=== PATIENT | female | born 1955 | race Hispanic/Latino ===

== ENCOUNTER 2018-01-10 08:01 | Day surgery (SDC) | payer BC ==
[2018-01-08 10:37] VITALS: BMI 30.8
[2018-01-10 08:43] LABS: BASO # 0.04 K/mm3 (0.0-2.0); BASO % 0.7 % (0.0-3.0); EOS # 0.3 (0.0-0.7); EOS % 4.7 % (1.5-5.0); GRAN # 2.83 (1.4-6.5); GRAN % 51.5 % (50.0-68.0); HEMOGLOBIN 12.7 g/dL (12.0-16.0); LYMPH % 36.2 % (22.0-35.0); MEAN CELL VOLUME 89.2 fl (80.0-105.0); MEAN CORPUSCULAR HEMOGLOBIN 30.5 pg (25.0-35.0); MEAN CORPUSCULAR HGB CONC 34.1 g/dl (31.0-37.0); MEAN PLATELET VOLUME 8.4 fl (7.0-11.0); MONO # 0.4 (0.1-0.6); MONO % 6.9 % (1.0-6.0); RBC 4.17 10^6/uL (3.5-6.1); RED CELL DISTRIBUTION WIDTH 14.2 % (11.5-14.5); WHITE BLOOD COUNT 5.5 10^3/ul (4.5-11.0)
[2018-01-10 08:54] LABS: INR 0.98 (0.93-1.08); PARTIAL THROMBOPLASTIN TIME 27.3 Seconds (25.1-36.5); PROTHROMBIN TIME 11.3 SECONDS (9.4-12.5)
[2018-01-10 09:00] LABS: BLOOD UREA NITROGEN 16 mg/dL (7-21); CALCIUM 9.3 mg/dL (8.4-10.5); GFR AFRICAN-AMERICAN > 60; GFR NON-AFRICAN AMERICAN > 60
[2018-01-10] MEDS ORDERED: Lidocaine 2% Inj (20ml) ONE (12:03)
[2018-01-10] MEDS ORDERED: Iohexol 350mgl/ml 50 ML ONE (12:04)
[2018-01-10] MEDS ORDERED: Midazolam 2 MG/2 ML VIAL ONE ×2 (12:08→12:35)
[2018-01-10] MEDS ORDERED: Adenosine 90 mg/30mL IV ONE (12:35)
[2018-01-10] MEDS ORDERED: Iodixanol 320 MG/ML 100 ML BOTTLE IV ONE (12:51)
[2018-01-10] MEDS ORDERED: Sodium Chloride 0.9% 1,000 ML IV SCH (13:15)
--- NOTE | 2018-01-10 14:01 | CARDCATH ---
PROCEDURE DATE: 01/10/2018 CARDIAC CATHETERIZATION AND PTCA HISTORY: The patient is a the patient is a 62-year-old woman with history of documented multivessel CAD and status post PTCA and stent of the circumflex artery and RCA who presented with a code heart in the past. She presents now with recurrence of exertional angina and shortness of breath. Her cardiac risk factors include hypertension, hypercholesterolemia as well as a long history of smoking, which she has stopped since her last PTCA Because of her ongoing symptoms, cardiac catheterization was recommended. PROCEDURE: Left heart catheterization with coronary arteriography, left ventriculogram, FFR, PTCA and stent of an LAD with performed. There were no complications. The right femoral artery was cannulated with 6-Polish sheath. I performed moderate sedation, which included the presence of an independent trained observer that assisted in monitoring the patient's level of consciousness and physiologic status. After administration of Versed and fentanyl, my intra service time was 30 minutes. The findings on catheterization revealed a right dominant circulation. The RCA revealed calcification of the tree with a patent stent noted. The left main artery was unremarkable. The LAD and diagonal vessels revealed diffuse atherosclerosis and calcification; in the midportion, there were two tandem lesions of approximately 70-80% narrowed. The circumflex artery revealed diffuse atherosclerosis with a patent stent with no critical lesions. LV function was within normal limits. EF is approximately 60-65%. FFR was performed of the LAD lesions. Having FFR of 0.83, the patient developed chest discomfort. The medication was stopped. The patient was started on Angiomax. The guiding catheter was placed in the ostium of the left main artery. The wire that was placed to the FFR was used. A 2.5 x 18 mm drug-eluting stent was placed and deployed in the mid LAD lesion at 14 atmospheres of pressure. A second 8-mm stent was placed just proximal to the first stent. After balloon deflation and removal, repeat coronary arteriography revealed an excellent result with no residual stenosis and OSCAR III flow. Angio-Seal was used to close the femoral artery site. The patient tolerated the procedure well. In summary, the procedure revealed: 1. Multivessel CAD. 2. Patent stent in the RCA and circumflex artery. 3. New critical lesions in the mid-LAD documented with a FFR of less than 0.83. 4. Normal LV function. 5. Successful PTCA and stent of the mid LAD with drug-eluting stent. Given these findings, the patient will need to remain on aspirin indefinitely and Effient for at least a year and undergo a strict cardiac risk reduction program. Addi Cazares MD
--- NOTE | 2018-01-10 16:52 | CARD ---
APPROVED REPORT EKG Measurement Heart [id number] <Conclusion> Sinus bradycardia Otherwise normal ECG
--- NOTE | 2018-01-10 16:55 | CARD ---
APPROVED REPORT EKG Measurement Heart [id number] <Conclusion> Sinus bradycardia Otherwise normal ECG
--- NOTE | 2018-01-11 03:28 | HP ---
HISTORY OF PRESENT ILLNESS: I was called by Dr. Cazares to see Sherrie. She is resting comfortably in bed. I saw her in room 266 with a friend. Apparently, she knows my office. She has been in my office about 20 years ago. She is status post cardiac cath, two stents placement, she tells me. She comes in with a history of having chest pain on and off for about a week and they planned a stress test and a cardiac cath. She has had cardiac caths before with stent placement, so they took straight to the cath room. She is a 62-year-old white female with chest pain, taken to the cath, had two stents placed. She has a past medical history of thyroid disease, COPD, CAD, high cholesterol, hypertension. Family history of cancer. She has vertigo, anxiety. Her aunt had breast cancer. Colonoscopy, PTCA stents x3. She had gallbladder surgery. She still drinks alcohol. She quit smoking, but she used to smoke a lot. No recreational drugs. She has father with coronary artery disease. She has chest pain. She has reading glasses. She is alert and oriented x3.. ALLERGIES: SHE HAS ALLERGIES TO PENICILLIN. REVIEW OF SYSTEMS: No acute vision or hearing changes. No sore throat. There is chest pain, a little bit of pressure, no tightness, nothing in the arm. No shortness of breath or cough. No palpitations. No abdominal pain. No nausea, vomiting, constipation, diarrhea. No leg pains. No skin issues that she knows of. No rashes or ulcers. She has been trying to watch a good diet, but since she stopped smoking, she has eaten too much sugar to put weight on. PHYSICAL EXAMINATION: VITAL SIGNS: 97.6 temperature, 60 pulse, 18 respiratory rate, 100% O2 sat on oxygen and 146/62 blood pressure. HEENT: Her head is atraumatic, normocephalic. Extraocular muscles are intact. Throat is moist. NECK: Supple. HEART: Regular rate. Normal S1, S2. LUNGS: Decreased breath sounds, but clear to auscultation bilaterally. She is now lying flat, status post cardiac cath and stent placement. ABDOMEN: Soft, nontender. Positive bowel sounds. She is obese. EXTREMITIES: No edema. SKIN: What I could tell the skin is intact. No apparent rashes. LYMPHATICS: Thyroid midline. No palpable appreciable lymphadenopathy. She is told to lay flat for 6 hours, status post cardiac cath. She is getting a little bit restless, but she knows she has to stay flat. LABORATORY DATA: She has a 144 sodium, potassium 4.5, BUN 16, creatinine sugar is 103, calcium is 9.3. INR is 0.98. 5.5 white count, 12.7 hemoglobin, 37.2 hematocrit with 304 platelets. ASSESSMENT AND PLAN: She saw Dr. Cazares. I will be in tomorrow morning. She is here for coronary artery disease and stent placement. She is on Ecotrin, Effient, Lipitor, IV fluids and Xanax. I will reorder her Xanax and will see her tomorrow morning as we see her for coronary artery disease, stent placement. Jossue Johnson DO MTDDasha
[2018-01-11 06:17] VITALS: BP 112/61; RESP 19; TEMP 98.4; O2SAT 95
[2018-01-11 07:01] LABS: BASO # 0.02 K/mm3 (0.0-2.0); BASO % 0.3 % (0.0-3.0); EOS # 0.4 (0.0-0.7); EOS % 4.8 % (1.5-5.0); GRAN # 4.63 (1.4-6.5); GRAN % 61.7 % (50.0-68.0); HEMOGLOBIN 12.1 g/dL (12.0-16.0); LYMPH # 2.2 (1.2-3.4); LYMPH % 28.7 % (22.0-35.0); MEAN CELL VOLUME 91.1 fl (80.0-105.0); MEAN CORPUSCULAR HGB CONC 32.9 g/dl (31.0-37.0); MEAN PLATELET VOLUME 8.5 fl (7.0-11.0); MONO # 0.3 (0.1-0.6); MONO % 4.5 % (1.0-6.0); RBC 4.04 10^6/uL (3.5-6.1); RED CELL DISTRIBUTION WIDTH 14.6 % (11.5-14.5); WHITE BLOOD COUNT 7.5 10^3/ul (4.5-11.0)
[2018-01-11 07:11] LABS: BLOOD UREA NITROGEN 17 mg/dL (7-21); CALCIUM 8.7 mg/dL (8.4-10.5); GFR AFRICAN-AMERICAN > 60; GFR NON-AFRICAN AMERICAN > 60
[2018-01-11 10:25] VITALS: PULSE 76
--- NOTE | 2018-01-11 13:39 | PN ---
DATE: 01/11/2018 SUBJECTIVE: The patient is chest pain free. PHYSICAL EXAMINATION: VITAL SIGNS: Blood pressure 112/66, heart rate in the 70s. NECK: Negative JVD. LUNGS: Without rales. HEART: Reveals S1, S2. EXTREMITIES: Without edema. The groin site is stable. LABORATORY DATA: Potassium is 4, hemoglobin is 12.1. IMPRESSION: 1. Stable post percutaneous transluminal coronary angioplasty and stent of an left anterior descending. 2. Multivessel coronary artery disease. 3. Hypercholesterolemia. 4. Former smoker. 5. Chronic obstructive pulmonary disease. Given these findings, the patient is stable for discharge. She needs to remain on Effient and aspirin with Effient for at least a year. Followup and instructions have been given to the patient in detail. Addi Cazares MD
--- NOTE | 2018-01-12 04:20 | DS ---
HISTORY OF PRESENT ILLNESS: The patient did well last night. She is status post cardiac stent placement for CAD yesterday with Dr. Cazares, two stents. She slept well, did well, walked to the bathroom well. No chest pain or shortness of breath. No abdominal pain. No leg pain. She is currently on Claritin, Ecotrin, Effient, Lipitor, Xanax. PHYSICAL EXAMINATION: VITAL SIGNS: She has a 98.4 temperature,77 pulse , 112/61 blood pressure, 19 respiratory rate, 95% O2 sat on room air. HEENT: Head is atraumatic, normocephalic. HEART: Regular rate. LUNGS: Clear to auscultation. ABDOMEN: Soft, mildly obese, nontender. EXTREMITIES: No edema. LABORATORY DATA: Her labs yesterday were very good. Her labs pending this morning, are not back yet, hopefully the same. She will be seen by Dr. Cazares this morning and will be sent home. I went over her diet with her. I went over the low sugar, low cholesterol diet, only good fats and good proteins and walking. No smoking. No drinking, behaving. She understood all these; hopefully, she will continue to do well. This is a patient who had CAD and stents placed. Jossue Johnson DO MTDD
== END 2018-01-11 12:33 | disposition home or self-care (01) ==
LOC: CATH 08:01 → 2RNO 14:04 → CATH 01-11 12:33
PROVIDERS: ATTEND Internal Medicine Cardiovascular Disease
DX: I25.118 Atherosclerotic heart disease of native coronary artery with other forms of angina pectoris (principal); E07.9 Disorder of thyroid, unspecified; E78.00 Pure hypercholesterolemia, unspecified; F41.9 Anxiety disorder, unspecified; I10 Essential (primary) hypertension; J44.9 Chronic obstructive pulmonary disease, unspecified; Z80.3 Family history of malignant neoplasm of breast; Z82.49 Family history of ischemic heart disease and other diseases of the circulatory system; Z87.891 Personal history of nicotine dependence; Z88.0 Allergy status to penicillin; Z95.5 Presence of coronary angioplasty implant and graft
CPT/HCPCS: 36415 ×2; 80048 ×2; 85025 ×2; 85610; 85730; 86850; 86900; 93005; 93458; 93571; 99152; 99153; C1760; C1769; C1874 ×2; C1887; C2629; C9600; J0153; J0583; J1644; J2250; J3010; J7030; J7040; Q9967 ×3

== ENCOUNTER 2018-01-13 14:16 | Observation (INO) | payer BC ==
[2018-01-13] MEDS ORDERED: Nitroglycerin 2% Ointment Foilpak UD TOP STA (14:52)
--- NOTE | 2018-01-13 14:54 | ED PDOC ---
Arrival/HPI - General Chief Complaint: Chest Pain Time Seen by Provider: 01/13/18 14:49 Historian: Patient - History of Present Illness Narrative History of Present Illness (Text): 01/13/18 14:53 pt p/w + worsening chest pain/pressure/discomfort substernal chest region with faint radiation across her chest this morning while patient was picking something (lightweight, < 1 lbs) up from the floor; pt states pain at most is 7/ 10; + lightheadedness/dizziness, no LOC; pt states no fever/chills/sweats, no palpitations, no abd pain, no n/v, no numbness/tingling; pt denied any bowel/ urinary changes, no fall/trauma/sick contact, no travel; pt is here for further eval. pt denied other complaints pt states she went home and took her xanax thinking her pain would improve but it did not, pt arrived to Emergency department for further eval. pt just received 2 cardiac stents [address] LUDWIG and was discharged from the hospital ~ 2 days ago; pt states she had very faint chest discomfort prior to discharge/and after discharge, but today's chest pain is different and more noticeable prompting patient for Emergency department visit PCP: Dr sky cards: Dr Ludwig Time/Duration: Prior to Arrival Symptom Onset: Sudden Symptom Course: Improving Quality: Pressure, Tightness, Cramping Severity Level: 7, Severe Activities at Onset: Other (lifting an object) Context: Other (at a store) Past Medical History - Provider Review Nursing Documentation Reviewed: Yes - Travel History Have you recently traveled outside [place] w/in the past 3 mons?: No - Past History Past History: No Previous - Infectious Disease Hx of Infectious Diseases: None - Reproductive Menopause: Yes Currently : No - Cardiac Hx Pacemaker: No - Pulmonary Hx Respiratory Disorders: No - Neurological Hx Paralysis: No - HEENT Hx HEENT Disorder: No - Renal Hx Renal Disorder: No - Endocrine/Metabolic Hx Hypothyroidism: Yes - Hematological/Oncological Hx Blood Transfusions: No - Integumentary Hx Dermatological Disorder: No - Musculoskeletal/Rheumatological Hx Musculoskeletal Disorders: No - Gastrointestinal Hx Gastrointestinal Disorders: No - Genitourinary/Gynecological Hx Genitourinary Disorders: No - Psychiatric Hx Emotional Abuse: No Hx Physical Abuse: No Hx Substance Use: No - Surgical History Other/Comment: stents Darleen X1 - Anesthesia Hx Anesthesia Reactions: No Hx Malignant Hyperthermia: No - Suicidal Assessment Feels Threatened In Home Enviroment: No Family/Social History - Physician Review Nursing Documentation Reviewed: Yes Family/Social History: No Known Family HX Smoking Status: Former Smoker Hx Alcohol Use: Yes (OCCASIONAL) Hx Substance Use: No Hx Substance Use Treatment: No Allergies/Home Meds Allergies/Adverse Reactions: Allergies Penicillins Allergy (Verified 08/15/16 06:04) ANGIOEDEMA Home Medications: Home Meds Medication Instructions Recorded Confirmed Aspirin [Ecotrin] 81 mg PO DAILY 08/16/16 01/13/18 Levothyroxine [Synthroid] 75 mcg PO DAILY 08/16/16 01/13/18 Prasugrel [Effient] 10 mg PO DAILY 08/16/16 01/13/18 ALPRAZolam [Xanax] 0.25 mg PO TID 05/03/17 01/13/18 Fluticasone/Vilanterol [Breo 1 each IH DAILY 05/03/17 01/13/18 Ellipta 100-25 Mcg INH] Losartan [Cozaar] 12.5 mg PO DAILY 05/03/17 01/13/18 Levocetirizine Dihydrochloride 5 mg PO DAILY 01/10/18 01/13/18 [Xyzal] Pitavastatin Calcium [Livalo] 1 mg PO DAILY 01/10/18 01/13/18 Review of Systems - Review of Systems Constitutional: Normal Eyes: Normal ENT: Normal Respiratory: Normal. absent: SOB Cardiovascular: Chest Pain. absent: Palpitations Gastrointestinal: Normal. absent: Abdominal Pain, Nausea, Vomiting Genitourinary Female: Normal Musculoskeletal: Normal Skin: Normal. absent: Rash Neurological: Dizziness. absent: Headache Endocrine: Normal Hemo/Lymphatic: Normal Psychiatric: Normal Physical Exam - Physical Exam Narrative Physical Exam (Text): 01/13/18 1450 General: alert/awake, GCS = 15, oriented x 3, resting in bed, uncomfortable, cooperative, interactive; NAD Head: NC/AT EYE: PERRLA, EOMI, sclera anicteric, no nystagmus, no photophobia Facial: WNL Oral: uvula/tongue are midline, no exudate/lesions, no drooling/stridor, no dysphonia; intact dentitions NECK: intact ROM, no midline tenderness, no nuchal rigidity, no meningeal signs ; no step off Chest: CTA b/l, no w/r/r; no tachypenia, no accessory muscle use noted Cardiac: +S1, +S2, no m/r/r, no tachycardia Abdominal: +BS, soft/nd/nt, well nourished patient; no masses/rebound/guarding/ rigidity; no duffy's sign, no mcburney's point tenderness Extremities: intact ROM, strength 5/5 grossly intact in all limbs, neurovasc intact b/l; + ambulatory; reflex +2/2 BACK: no step off, no midline tenderness, NO crepitus, no gross deformities noted; Intact ROM SKIN: cap refill < 1 sec, no ulcerations, no petechiae, no rashes NEURO: CNII-XII WNL, no facial asymmetries, no slurr speech, oriented x 3 NIH stroke scale ~ 0 Psych: normal insight, normal affect; follows command with ease Vital Signs Reviewed: Yes Vital Signs Temp Pulse Resp BP Pulse Ox 01/13/18 16:07 63 18 113/71 99 01/13/18 15:43 98.0 F 66 18 139/66 98 Temperature: Afebrile Blood Pressure: Hypertensive Pulse: Regular Respiratory Rate: Normal Appearance: Positive for: Well-Appearing, Non-Toxic, Uncomfortable, Other (alert /awake, GCS = 15, oriented x 3, resting in bed, uncomfortable, cooperative, NAD) Pain Distress: None Mental Status: Positive for: Alert and Oriented X 3 - Systems Exam Head: Present: Atraumatic, Normocephalic Medical Decision Making ED Course and Treatment: 1450 Impression: chest pain, r/o acs i have consider all the differential diagnosis regarding pt's chief medical complaints/clinical findings, including but are not limited to: chest pain, r/o acs A/P: chest pain, r/o acs - labs - iv - acs eval - supportive care - observe/reevaluation 1530 pt states her chest pain currently is 2-3/10 pt is not sob pt is awaiting her medical results 01/13/18 15:00: Case discussed in detail with Dr. Ludwig who agrees with Emergency department management. Juan Aes that he wants the patient to be admitted for further cardiac evaluation; he will continue to monitor patient 01/13/18 16:27: Case discussed in detail with Dr. Johnson who was made aware and agrees with emergency department management. Will admit patient to his service. Requests Dr. Ludwig on consult. 01/13/18 16:30 pt is currently chest pain free vital signs WNL pt is made aware of her medical results agrees with admission/obs Re-evaluation Time: 16:15 Reassessment Condition: Improved - Lab Interpretations Lab Results: 01/13/18 15:40 01/13/18 15:40 Lab Results 01/13/18 15:40: Sodium 144, Potassium 4.1, Chloride 105, Carbon Dioxide 28, Anion Gap 15, BUN 12, Creatinine 0.6 L, Est GFR ( Amer) > 60, Est GFR ( Non-Af Amer) > 60, Random Glucose 94, Calcium 9.3, Magnesium 2.0, Total Bilirubin 0.5, AST 39 H, ALT 42, Alkaline Phosphatase 57, Lactate Dehydrogenase 390, Total Creatine Kinase 40, Troponin I < 0.01 D, Total Protein 7.2, Albumin 4.1, Globulin 3.0, Albumin/Globulin Ratio 1.4 01/13/18 15:40: PT 11.5, INR 1.01, APTT 25.9 01/13/18 15:40: WBC 7.0, RBC 4.00, Hgb 12.0, Hct 35.7 L, MCV 89.3, MCH 30.0, MCHC 33.6, RDW 14.0, Plt Count 285, MPV 8.5, Gran % 53.1, Lymph % (Auto) 36.9 H , Nelson % (Auto) 5.6, Eos % (Auto) 4.0, Baso % (Auto) 0.4, Gran # 3.72, Lymph # ( Auto) 2.6, Nelson # (Auto) 0.4, Eos # (Auto) 0.3, Baso # (Auto) 0.03 I have reviewed the lab results: Yes Interpretation: All labs normal - RAD Interpretation Narrative RAD Interpretations (Text): 01/13/18 17:08 HISTORY: chest pain COMPARISON: No prior. FINDINGS: LUNGS: No active pulmonary disease. PLEURA: No significant pleural effusion identified, no pneumothorax apparent. CARDIOVASCULAR: Normal. OSSEOUS STRUCTURES: No significant abnormalities. VISUALIZED UPPER ABDOMEN: Normal. OTHER FINDINGS: None. IMPRESSION: No active disease. Radiology Orders: 01/13/18 14:52 CHEST PORTABLE [RAD] Stat [employer] System Operator: Radiologist - EKG Interpretation EKG Interpretation (Text): 01/13/18 17:08 NSR at 65 bpm, normal axis, no ectopy, diffuse low voltage inf leads, qs in leads III/V1, inverted T in leads V5-6; ABNL EKG; no gross changes compare with old ekg 12/2017 Interpreted by ED Physician: Yes Type: 12 lead EKG Comparison: Similar to previous EKG - Medication Orders Current Medication Orders: Discontinued Medications Aspirin (Aspirin Chewable) 81 mg PO STAT STA Stop: 01/13/18 14:53 Last Admin: 01/13/18 15:51 Dose: Nitroglycerin (Nitro-Bid 2% Oint) 1 ea TOP STAT STA Stop: 01/13/18 14:53 Last Admin: 01/13/18 15:54 Dose: 1 ea Disposition/Present on Arrival - Present on Arrival Any Indicators Present on Arrival: No History of DVT/PE: No History of Uncontrolled Diabetes: No Urinary Catheter: No History of Decub. Ulcer: No History Surgical Site Infection Following: None - Disposition Have Diagnosis and Disposition been Completed?: Yes Diagnosis: Chest pain with moderate risk for cardiac etiology Disposition: HOSPITALIZED Disposition Time: 16:00 Patient Plan: Admission, Observation, Telemetry Patient Problems: Current Active Problems Problem Status Onset Chest pain with moderate risk for cardiac etiology Acute Condition: STABLE
--- NOTE | 2018-01-13 15:17 | RAD ---
HISTORY: chest pain COMPARISON: No prior. FINDINGS: LUNGS: No active pulmonary disease. PLEURA: No significant pleural effusion identified, no pneumothorax apparent. CARDIOVASCULAR: Normal. OSSEOUS STRUCTURES: No significant abnormalities. VISUALIZED UPPER ABDOMEN: Normal. OTHER FINDINGS: None. IMPRESSION: No active disease.
[2018-01-13 16:01] LABS: BASO # 0.03 K/mm3 (0.0-2.0); BASO % 0.4 % (0.0-3.0); EOS # 0.3 (0.0-0.7); GRAN # 3.72 (1.4-6.5); GRAN % 53.1 % (50.0-68.0); LYMPH # 2.6 (1.2-3.4); LYMPH % 36.9 % (22.0-35.0); MEAN CELL VOLUME 89.3 fl (80.0-105.0); MEAN CORPUSCULAR HGB CONC 33.6 g/dl (31.0-37.0); MEAN PLATELET VOLUME 8.5 fl (7.0-11.0); MONO # 0.4 (0.1-0.6); MONO % 5.6 % (1.0-6.0)
[2018-01-13 16:09] LABS: INR 1.01 (0.93-1.08); PARTIAL THROMBOPLASTIN TIME 25.9 Seconds (25.1-36.5); PROTHROMBIN TIME 11.5 SECONDS (9.4-12.5)
[2018-01-13 16:17] LABS: ALB/GLOB RATIO 1.4 (1.1-1.8); ALBUMIN 4.1 g/dL (3.0-4.8); ALT/SGPT 42 U/L (7-56); AST/SGOT 39 U/L (14-36); BLOOD UREA NITROGEN 12 mg/dL (7-21); CALCIUM 9.3 mg/dL (8.4-10.5); GFR AFRICAN-AMERICAN > 60; GFR NON-AFRICAN AMERICAN > 60
[2018-01-13 16:22] LABS: TROPONIN I < 0.01 ng/mL
[2018-01-13] MEDS ORDERED: Morphine 4 mg/ml ISec IVP PRN (17:51)
[2018-01-13 23:32] VITALS: BMI 30.8
[2018-01-13] MEDS ORDERED: Pneumococcal 23-Valent Vaccine IM ONE (23:32)
--- NOTE | 2018-01-14 03:41 | HP ---
DATE OF EXAM: 01/13/2018 HISTORY OF PRESENT ILLNESS: I know her from her recent hospital stay about a week ago with Dr. Cazaers where she was cardiac cath'ed and stent placed. She comes in with being a 62-year-old white female with worsening chest pain, pressure at the center of the chest, substernal pain radiation across the chest after picking up something very light. The pain is 7/10 verses 8/10. She came back to the emergency room after taking Xanax thinking that might calm her down, but it did not. She had two cardiac stents [address] Cazares discharged her from the hospital. She has chest tightness, improving, severe. She has hypothyroidism, allergies, high cholesterol, CAD. SOCIAL HISTORY: Occasionally, she drinks alcohol. A former smoker. No substance abuse. FAMILY HISTORY: Has hypertension and diabetes in the family. ALLERGIES: ALLERGIC TO PENICILLIN. PAST MEDICAL HISTORY: She has hypothyroidism, anxiety, allergies, high cholesterol, hypertension. MEDICATIONS: She is on Ecotrin, Synthroid, Effient and Xanax, Cozaar. REVIEW OF SYSTEMS: No acute vision or hearing changes. No sore throat. No shortness of breath or cough. Still having chest pain, pressure down in the center and across her chest; it is sharp and painful. No palpitation. No nausea, vomiting, constipation, diarrhea. No abdominal pain. No leg issues. No skin issues. No anxiety or depression. PHYSICAL EXAMINATION: VITAL SIGNS: She has a 63 pulse, 18 respiratory rate, 113/71 blood pressure, 99% O2 sat on pulse ox. GENERAL: She is alert, awake, sitting up in bed trying eat some lunch or dinner. GCS is 15. Cranial nerves II through XII grossly intact. Still having chest pain. HEENT: Head is atraumatic, normocephalic. Extraocular muscles are intact. Pupils are equal and reactive to light and accommodation. Throat is moist. NECK: Supple. Thyroid is midline. No palpable appreciable lymphadenopathy. HEART: Regular rate. Normal S1, S2. LUNGS: Decreased breath sounds, but clear to auscultation bilaterally. No wheezes, rhonchi, or rales. ABDOMEN: Soft, nontender. Positive bowel sounds. No guarding, no rebound, no CVA tenderness. EXTREMITIES: Have 5/5 strength bilaterally. No edema. SKIN: For the most part is intact. No apparent rashes or ulcers. NEUROLOGICAL: Cranial nerves II through XII grossly intact. Normal speech, oriented x3. Normal insight. LABORATODY DATA: She had a bunch of tests so far in the emergency room. Chest x-ray showed no active disease. Sodium 144, potassium 4.1, BUN 12, creatinine 0.6, GFR is greater than 60, sugar is 94, calcium is 9.3, magnesium is 2. Total bili is 0.5, AST is 39, ALT is 42, alk phos is 67. Lactate dehydrogenase is 390, total creatine kinase is 40. Troponin-I is less than 0.01, total protein 7.2, albumin is 4.1, globulin is 3. INR is 1.01. White count is 7, hemoglobin 12, hematocrit 35.7, platelets of 285. ASSESSMENT AND PLAN: She is going to have a consult with Dr. Cazares, the secondary education professor. Checking troponins x2 more every 8 hours, checking her labs. Put her back on her medications. Heart-healthy diet. Oxygen and p.r.n. pain meds. We will continue with aggressive treatment and care. She is on observation status and hopefully she will do well tonight. Jossue Johnson DO MTDD
[2018-01-14] MEDS ORDERED: Levothyroxine 75 MCG TAB PO SCH (06:00)
[2018-01-14 06:25] LABS: HEMOGLOBIN 11.7 g/dL (12.0-16.0); MEAN CELL VOLUME 89.4 fl (80.0-105.0); MEAN CORPUSCULAR HEMOGLOBIN 29.5 pg (25.0-35.0); MEAN PLATELET VOLUME 8.4 fl (7.0-11.0); RBC 3.97 10^6/uL (3.5-6.1); RED CELL DISTRIBUTION WIDTH 14.1 % (11.5-14.5); WHITE BLOOD COUNT 5.6 10^3/ul (4.5-11.0)
[2018-01-14 06:26] VITALS: O2SAT 98
[2018-01-14 07:16] LABS: ALB/GLOB RATIO 1.3 (1.1-1.8); ALBUMIN 3.9 g/dL (3.0-4.8); ALT/SGPT 41 U/L (7-56); AST/SGOT 35 U/L (14-36); BLOOD UREA NITROGEN 15 mg/dL (7-21); CALCIUM 9.1 mg/dL (8.4-10.5); GFR AFRICAN-AMERICAN > 60; GFR NON-AFRICAN AMERICAN > 60
[2018-01-14] MEDS ORDERED: Lidocaine 2% Inj (20ml) ONE ×2 (07:26→08:15)
[2018-01-14] MEDS ORDERED: Midazolam 2 MG/2 ML VIAL ONE ×3 (07:27→08:10)
[2018-01-14] MEDS ORDERED: Iodixanol 320 MG/ML 200 ML BOTTLE IV ONE (07:27)
--- NOTE | 2018-01-14 08:11 | CARD ---
APPROVED REPORT EKG Measurement Heart [id number] AZ [id number] <Conclusion> Normal sinus rhythm Normal ECG
[2018-01-14] MEDS ORDERED: Sodium Chloride 0.9% 1,000 ML IV SCH (09:15)
--- NOTE | 2018-01-14 09:48 | CARDCATH ---
PROCEDURE DATE: 01/14/2018 The patient with status post PTCA presents with substernal chest pain that was severe requiring nitroglycerin. Cardiac catheterization was recommended. PROCEDURE: Left heart catheterization with coronary arteriography and left ventriculogram. The left femoral artery was cannulated with a 6-Taiwanese sheath. There were no complications. I performed moderate sedation, which included the presence of an independent trained observer that assisted in monitoring the patient's level of consciousness and physiologic status. After administration of Versed and fentanyl, my intra service time was 15 minutes. The findings on catheterization revealed a right dominant circulation. The RCA was unremarkable with diffuse intimal irregularities throughout its course. The left main artery revealed intimal irregularities. The LAD was diffusely diseased with a patent stent in the midportion that was placed last week. The diagonal vessels revealed diffuse atherosclerosis with multiple 50-60% lesions throughout. The circumflex artery system revealed diffuse atherosclerosis without critical lesions. LV function is normal with an EF of 60%. The patient tolerated the procedure well. The Myn[employer] system was used for hemostasis. In summary, the procedure revealed a patent stent in the mid LAD that was placed recently. There was a 50-60% lesion in the diagonal vessel and diffuse atherosclerosis throughout the coronary tree. LV function is normal. Given these findings, the patient's treatment will be continued, medical therapy. Her symptoms that brought back to the hospital is not cardiac in origin. Addi Cazares MD
[2018-01-14] MEDS ORDERED: Fluticasone/Vilanterol [Breo Ellipta 100-25 Mcg Inh] IH SCH (10:00)
--- NOTE | 2018-01-14 10:07 | CON ---
DATE: 01/13/2018 HISTORY: The patient is a 62-year-old woman who presents with severe pressure-like sensation in the chest while shopping today. The symptoms are finally relieved after giving nitroglycerin. The patient had recent PTCA and stent of the LAD. She is status post code heart with an occluded RCA years ago; has a documented patent stent in the RCA. She suffers from hypertension, hypercholesterolemia and is on Effient and aspirin because of her insensitivity to Plavix. She denies smoking. The 14 point review of systems was reviewed in detail. Currently, the patient is asymptomatic at rest. No additional symptoms are noted. PHYSICAL EXAMINATION: VITAL SIGNS: Blood pressure 114/70, heart rates in the 70s. NECK: Negative JVD. LUNGS: Without rales. HEART: Reveal S1, S2. EXTREMITIES: Without edema. DATA: EKG shows no changes from her previous. LABORATORY DATA: Hemoglobin is 11.7. Troponins are negative x2. IMPRESSION: 1. Recurrent classic angina post percutaneous transluminal coronary angioplasty. 2. Coronary artery disease. 3. Multivessel coronary artery disease. 4. Recent percutaneous transluminal coronary angioplasty of an left anterior descending artery. 5. Old inferior wall myocardial infarction. Given these findings, we will bring the patient down for cardiac catheterization to make sure that stent is patent. Addi Cazares MD
[2018-01-14 12:57] VITALS: TEMP 97.9
[2018-01-14 16:49] VITALS: RESP 20
[2018-01-14 17:18] VITALS: BP 117/64
[2018-01-14 19:03] VITALS: PULSE 77
--- NOTE | 2018-01-15 08:09 | DS ---
PROGRESS NOTE AND DISCHARGE SUMMARY SUBJECTIVE: I saw her resting comfortably after the cardiac cath this morning. She is doing quite well. The cardiac cath went very well. All the stents are open. This chest pain is noncardiac at this time. She also has some hypertension, high cholesterol. She is on aspirin, Claritin, Cozaar, Ecotrin, Effient, Flonase, Lipitor, levothyroxine, and Xanax. PHYSICAL EXAMINATION: VITAL SIGNS: She has a 97.9 temperature, 70 pulse, 114/70 blood pressure, 18 respiratory rate, 90% O2 sat on room air. HEENT: Head is atraumatic, normocephalic. Throat is moist. NECK: Supple. HEART: Regular rate. LUNGS: Decreased breath sounds, but clear. No more chest pain today. ABDOMEN: Soft, nontender. Positive bowel sounds. Mildly obese. EXTREMITIES: No edema. She is in good spirits. She is feeling back to normal. No complaints. LABORATORY DATA: She has 5.6 white count, 11.7 hemoglobin, 35.5 hematocrit with 276 platelets. Sodium 142, potassium 4.1. BUN 15, creatinine 0.6. GFR is greater 60. Sugar is 88. Calcium 9.1. Total bili is 0.5, AST is 35, ALT is 41, alk phos 52. All troponin's are less than 0.01 and total protein 6.8. She was seen by Dr. Cazares, the pricing specialist. Had a cardiac cath stents were open and she will be discharged later today after dinner. She is said to be picked up by her . Continue the same medications as here for atypical chest pain. Also, she has CAD, hypertension, high cholesterol. Follow up with the PMD in the next week. Jossue Johnson DO [facility]
== END 2018-01-14 19:00 | disposition home or self-care (01) ==
LOC: ED 14:16 → ERH 16:26 → 2RNO 19:11
PROVIDERS: ADMIT Family Medicine; ATTEND Family Medicine
DX: I25.119 Atherosclerotic heart disease of native coronary artery with unspecified angina pectoris (principal); I10 Essential (primary) hypertension; E78.00 Pure hypercholesterolemia, unspecified; E03.9 Hypothyroidism, unspecified; I25.2 Old myocardial infarction; Z79.82 Long term (current) use of aspirin; Z87.891 Personal history of nicotine dependence; Z82.49 Family history of ischemic heart disease and other diseases of the circulatory system; Z83.3 Family history of diabetes mellitus; Z95.5 Presence of coronary angioplasty implant and graft
CPT/HCPCS: 36415; 71045; 80053; 82550; 83615; 83735; 84484; 85025; 85027; 85610; 85730; 93005; 93458; 99152; 99153; 99285; C1760; C1769; C2629; G0378; J1644; J2250; J3010; J7040; Q9966

== ENCOUNTER 2018-01-21 10:26 | Emergency (ER) | payer BC ==
[2018-01-21 11:19] VITALS: RESP 18; O2SAT 98; BMI 30.4
--- NOTE | 2018-01-21 12:12 | ED PDOC ---
Arrival/HPI - General Chief Complaint: Groin Pain Time Seen by Provider: 01/21/18 11:02 Historian: Patient - History of Present Illness Narrative History of Present Illness (Text): 01/21/18 12:09 62yo female with PMHx of CAD and recent catheterization on 01/10 and 01/14 present with complaint of pain to her left groin area. Notes that pain and swelling started after the catheterization last week. She states that the pain and swelling improved, but she came to ED for evaluation. She declined pain in ED .States she is currently on anticoagulant. Denies calf pain, SOB, chest pain , diaphoresis, any other complaint. Past Medical History - Provider Review Nursing Documentation Reviewed: Yes - Past History Past History: No Previous - Infectious Disease Hx of Infectious Diseases: None - Cardiac Hx Cardiac Disorders: (cp) Hx Angina: ("Nobody ever told me I had angina" pt stated) Hx Hypertension: Yes Hx Pacemaker: No Other/Comment: pt denies ever having an mi, february 2016 1st stent, jul 2016 2 stents, january 10 2 more stents total of 5 - Pulmonary Hx Respiratory Disorders: Yes Hx Chronic Obstructive Pulmonary Disease (COPD): Yes ("very" mild copd) - Neurological Hx Neurological Disorder: Yes Hx Dizziness: Yes (vertigo) - HEENT Hx HEENT Disorder: Yes (eyeglasses) - Renal Hx Renal Disorder: No - Endocrine/Metabolic Hx Hypothyroidism: Yes - Hematological/Oncological Hx Blood Disorders: No - Integumentary Hx Dermatological Disorder: No - Musculoskeletal/Rheumatological Hx Musculoskeletal Disorders: No Hx Falls: No - Gastrointestinal Hx Gastrointestinal Disorders: Yes (diverticulosis) - Genitourinary/Gynecological Hx Genitourinary Disorders: No - Psychiatric Hx Anxiety: Yes Hx Emotional Abuse: No Hx Physical Abuse: No Hx Substance Use: No - Surgical History Hx Cardiac Catheterization: Yes Hx Cholecystectomy: Yes (2006) Hx Coronary Stent: Yes Other/Comment: february 2016 1st stent, jul 2016 2 stents, january 10 2 more stents for total of 5 - Anesthesia Hx Anesthesia Reactions: No Hx Malignant Hyperthermia: No - Suicidal Assessment Feels Threatened In Home Enviroment: No Family/Social History - Physician Review Nursing Documentation Reviewed: Yes Family/Social History: Unknown Family HX Smoking Status: Never Smoked Hx Alcohol Use: No Hx Substance Use: No Hx Substance Use Treatment: No Allergies/Home Meds Allergies/Adverse Reactions: Allergies Penicillins Allergy (Verified 08/15/16 06:04) ANGIOEDEMA Home Medications: Home Meds Medication Instructions Recorded Confirmed Aspirin [Ecotrin] 81 mg PO DAILY 08/16/16 01/13/18 Levothyroxine [Synthroid] 75 mcg PO DAILY 08/16/16 01/13/18 Prasugrel [Effient] 10 mg PO DAILY 08/16/16 01/13/18 ALPRAZolam [Xanax] 0.25 mg PO TID 05/03/17 01/13/18 Fluticasone/Vilanterol [Breo 1 each IH DAILY 05/03/17 01/13/18 Ellipta 100-25 Mcg INH] Losartan [Cozaar] 12.5 mg PO DAILY 05/03/17 01/13/18 Levocetirizine Dihydrochloride 5 mg PO DAILY 01/10/18 01/13/18 [Xyzal] Pitavastatin Calcium [Livalo] 1 mg PO DAILY 01/10/18 01/13/18 Review of Systems - Physician Review All systems were reviewed & negative as marked: Yes - Review of Systems Constitutional: Normal Eyes: Normal ENT: Normal Respiratory: Normal Cardiovascular: Normal Gastrointestinal: Normal Genitourinary Female: Normal Musculoskeletal: Arthralgias (Left groin pain) Skin: Normal Neurological: Normal Endocrine: Normal Hemo/Lymphatic: Normal Psychiatric: Normal Physical Exam Vital Signs Temp Pulse Resp BP Pulse Ox 01/21/18 11:19 98.4 F 70 18 112/74 98 Temperature: Afebrile Blood Pressure: Normal Pulse: Regular Respiratory Rate: Normal Appearance: Positive for: Well-Appearing, Non-Toxic, Comfortable Pain Distress: None Mental Status: Positive for: Alert and Oriented X 3 - Systems Exam Head: Present: Atraumatic, Normocephalic Pupils: Present: PERRL Extroacular Muscles: Present: EOMI Conjunctiva: Present: Normal Mouth: Present: Moist Mucous Membranes Neck: Present: Normal Range of Motion Respiratory/Chest: Present: Clear to Auscultation, Good Air Exchange. No: Respiratory Distress, Accessory Muscle Use Cardiovascular: Present: Regular Rate and Rhythm, Normal S1, S2. No: Murmurs Abdomen: No: Tenderness, Distention, Peritoneal Signs Back: Present: Normal Inspection Upper Extremity: Present: Normal Inspection. No: Cyanosis, Edema Lower Extremity: Present: NORMAL PULSES, Normal ROM, Tenderness (Left groin area with mild swelling/induration), Neurovascularly Intact. No: Edema, CALF TENDERNESS, Erythema, Temperature Abnormalties Neurological: Present: GCS=15, CN II-XII Intact, Speech Normal Skin: Present: Warm, Dry, Normal Color. No: Rashes Psychiatric: Present: Alert, Oriented x 3, Normal Insight, Normal Concentration Medical Decision Making ED Course and Treatment: 01/21/18 13:18 62yo female in ED for left groin pain s/p Catheterization last week. she was seen in ED by the Dr. Cazares. Plan was to get Doppler US to r/o DVT and if negative DC pt home to f/u outpt Per US tech - Doppler was negative for DVT Result was DW the pt and she was referred to Dr. cazares - RAD Interpretation Radiology Orders: 01/21/18 11:57 DUPLEX LOWER EXTRM VEIN BILAT [US] Stat Disposition/Present on Arrival - Present on Arrival Any Indicators Present on Arrival: No History of DVT/PE: No History of Uncontrolled Diabetes: No Urinary Catheter: No History of Decub. Ulcer: No History Surgical Site Infection Following: None - Disposition Have Diagnosis and Disposition been Completed?: Yes Diagnosis: Groin pain Disposition: HOME/ ROUTINE Disposition Time: 13:25 Patient Plan: Discharge Condition: STABLE Additional Instructions: Follow up with your Doctor, Doctor Cazares Return to ED for any new symptoms Referrals: Jeancarlos Tubbs MD [Primary Care Provider] - Follow up with primary Forms: [employer] ([employer])
[2018-01-21 16:06] VITALS: BP 115/86; PULSE 82; TEMP 98.2
--- NOTE | 2018-01-22 13:10 | US ---
HISTORY: Leg pain and swelling. Evaluate for DVT PHYSICIAN(S): Addi Stephenson MD. TECHNIQUE: Duplex sonography and color-flow Doppler with graded compression were used to evaluate the deep venous systems of both lower extremities. FINDINGS: The visualized deep venous systems of both lower extremities are sonographically normal and compressible. Normal wave forms and augmentation are seen. There is no sonographic evidence for deep venous thrombosis in the visualized segments of both lower extremities. IMPRESSION: No sonographic evidence for deep venous thrombosis in the visualized segments of both lower extremities.
== END 2018-01-21 13:35 | disposition home or self-care (01) ==
LOC: ED 10:26
DX: R10.30 Lower abdominal pain, unspecified (principal); I10 Essential (primary) hypertension; E03.9 Hypothyroidism, unspecified

== ENCOUNTER 2018-09-25 13:38 | Inpatient (IN) | payer BC, MEDICARE ==
[2018-09-25 13:49] VITALS: BMI 30.2
[2018-09-25 14:29] LABS: BASO # 0.05 K/mm3 (0.0-2.0); BASO % 0.8 % (0.0-3.0); EOS # 0.4 (0.0-0.7); EOS % 5.9 % (1.5-5.0); LYMPH # 2.6 (1.2-3.4); MEAN CELL VOLUME 90.6 fl (80.0-105.0); MEAN CORPUSCULAR HEMOGLOBIN 30.4 pg (25.0-35.0); MEAN CORPUSCULAR HGB CONC 33.5 g/dl (31.0-37.0); MEAN PLATELET VOLUME 8.6 fl (7.0-11.0); MONO # 0.3 (0.1-0.6); MONO % 5.2 % (1.0-6.0); RBC 3.95 10^6/uL (3.5-6.1); RED CELL DISTRIBUTION WIDTH 14.4 % (11.5-14.5); WHITE BLOOD COUNT 6.6 10^3/uL (4.5-11.0)
[2018-09-25 14:36] LABS: INR 1.05; PARTIAL THROMBOPLASTIN TIME 31.6 Seconds (26.9-38.3); PROTHROMBIN TIME 11.7 SECONDS (9.4-12.5)
[2018-09-25 14:40] LABS: ALB/GLOB RATIO 1.4 (1.1-1.8); ALBUMIN 4.2 g/dL (3.0-4.8); ALT/SGPT 30 U/L (7-56); AST/SGOT 38 U/L (14-36); BLOOD UREA NITROGEN 12 mg/dL (7-21); CALCIUM 9.5 mg/dL (8.4-10.5); GFR NON-AFRICAN AMERICAN > 60
--- NOTE | 2018-09-25 14:43 | ED PDOC ---
Arrival/HPI - General Chief Complaint: Chest Pain Time Seen by Provider: 09/25/18 13:40 Historian: Patient - History of Present Illness Narrative History of Present Illness (Text): 09/25/18 13:40 Patient is a 63 year old female with a past history of hypertension, hyperlipidemia, COPD, CAD s/p stents x5, asthma (on ventolin), and cholecystectomy presenting to the Emergency department with complaints of intermittent chest pain since Saturday. Her most recent cardiac catheterization was December 2017. Patient describes pain as pressure with mild relief upon coughing 1 day ago but reports persistent midsternal pressure x 1 day. Patient states taking aspirin 81 mg this morning. Patient informs abdominal bloating, but denies any fevers, chills, headache, dizziness, shortness of breath, dyspnea on exertion, abdominal pain, nausea, vomiting, diarrhea, back pain, neck pain, or any other complaints. Hoisting Engineer: Dr. Cazares PMD: Dr. Tubbs 09/25/18 17:45 Time/Duration: < week Symptom Onset: Gradual Symptom Course: Intermittent Quality: Pressure Activities at Onset: Light Context: Home Past Medical History - Provider Review Nursing Documentation Reviewed: Yes - Past History Past History: No Previous - Infectious Disease Hx of Infectious Diseases: None - Cardiac Hx Cardiac Disorders: (cp) Hx Angina: ("Nobody ever told me I had angina" pt stated) Hx Hypertension: Yes Hx Pacemaker: No Other/Comment: pt denies ever having an mi, february 2016 1st stent, jul 2016 2 stents, january 10 2 more stents total of 5 - Pulmonary Hx Respiratory Disorders: Yes Hx Chronic Obstructive Pulmonary Disease (COPD): Yes ("very" mild copd) - Neurological Hx Neurological Disorder: Yes Hx Dizziness: Yes (vertigo) - HEENT Hx HEENT Disorder: Yes (eyeglasses) - Renal Hx Renal Disorder: No - Endocrine/Metabolic Hx Hypothyroidism: Yes - Hematological/Oncological Hx Blood Disorders: No - Integumentary Hx Dermatological Disorder: No - Musculoskeletal/Rheumatological Hx Musculoskeletal Disorders: No Hx Falls: No - Gastrointestinal Hx Gastrointestinal Disorders: Yes (diverticulosis) - Genitourinary/Gynecological Hx Genitourinary Disorders: No - Psychiatric Hx Anxiety: Yes Hx Emotional Abuse: No Hx Physical Abuse: No Hx Substance Use: No - Surgical History Hx Cardiac Catheterization: Yes Hx Cholecystectomy: Yes (2006) Hx Coronary Stent: Yes Other/Comment: february 2016 1st stent, jul 2016 2 stents, january 10 2 more stents for total of 5 - Anesthesia Hx Anesthesia Reactions: No Hx Malignant Hyperthermia: No - Suicidal Assessment Feels Threatened In Home Enviroment: No Family/Social History - Physician Review Nursing Documentation Reviewed: Yes Family/Social History: Unknown Family HX Smoking Status: Never Smoked Hx Alcohol Use: Yes Frequency of alcohol use: Socially Hx Substance Use: No Hx Substance Use Treatment: No Allergies/Home Meds Allergies/Adverse Reactions: Allergies Penicillins Allergy (Verified 08/15/16 06:04) ANGIOEDEMA Home Medications: Home Meds Medication Instructions Recorded Confirmed Aspirin [Ecotrin] 81 mg PO DAILY 08/16/16 01/13/18 Levothyroxine [Synthroid] 75 mcg PO DAILY 08/16/16 01/13/18 Prasugrel [Effient] 10 mg PO DAILY 08/16/16 01/13/18 ALPRAZolam [Xanax] 0.25 mg PO TID 05/03/17 01/13/18 Fluticasone/Vilanterol [Breo 1 each IH DAILY 05/03/17 01/13/18 Ellipta 100-25 Mcg INH] Losartan [Cozaar] 12.5 mg PO DAILY 05/03/17 01/13/18 Levocetirizine Dihydrochloride 5 mg PO DAILY 01/10/18 01/13/18 [Xyzal] Pitavastatin Calcium [Livalo] 1 mg PO DAILY 01/10/18 01/13/18 Review of Systems - Review of Systems Constitutional: absent: Fevers, Night Sweats Eyes: absent: Vision Changes Respiratory: Cough. absent: SOB Cardiovascular: Chest Pain Gastrointestinal: Other (Abdominal bloating). absent: Abdominal Pain, Constipation, Diarrhea, Nausea, Vomiting Genitourinary Female: absent: Dysuria Musculoskeletal: absent: Back Pain, Neck Pain Skin: absent: Rash Neurological: absent: Headache, Dizziness Endocrine: absent: Diaphoresis Psychiatric: absent: Anxiety Physical Exam Vital Signs Reviewed: Yes Vital Signs Temp Pulse Resp BP Pulse Ox 09/25/18 13:59 98.0 F 59 L 17 130/65 97 Temperature: Afebrile Blood Pressure: Normal Pulse: Regular Respiratory Rate: Normal Appearance: Positive for: Well-Appearing, Non-Toxic, Comfortable Pain Distress: None Mental Status: Positive for: Alert and Oriented X 3 - Systems Exam Head: Present: Atraumatic, Normocephalic Pupils: Present: PERRL Extroacular Muscles: Present: EOMI Conjunctiva: Present: Normal Mouth: Present: Moist Mucous Membranes Neck: Present: Normal Range of Motion Respiratory/Chest: Present: Clear to Auscultation, Good Air Exchange. No: Respiratory Distress, Accessory Muscle Use Cardiovascular: Present: Regular Rate and Rhythm, Normal S1, S2. No: Murmurs Abdomen: No: Tenderness, Distention, Peritoneal Signs Back: Present: Normal Inspection Upper Extremity: Present: Normal Inspection. No: Cyanosis, Edema Lower Extremity: Present: Normal Inspection. No: Edema Neurological: Present: GCS=15, CN II-XII Intact, Speech Normal Skin: Present: Warm, Dry, Normal Color. No: Rashes Psychiatric: Present: Alert, Oriented x 3, Normal Insight, Normal Concentration Medical Decision Making ED Course and Treatment: 09/25/18 14:00 Impression: Patient is a 63 year old female who presents to the emergency department with complaints of chest pain since 2 days. Plan: -- Labs -- EKG -- Chest X-Ray -- Aspirin -- Reassess and disposition Prior Visits: Notes and results from previous visits were reviewed. Progress Notes: 09/25/18 15:[address] Cazares, who is aware and states sending someone down from his team for stress test on Saturday morning (3days) and recommends 4 hour trop onin. 09/25/18 16:07 Patient refuses stress test scheduled for Saturday. Spoke to Dr. Cazares, who recommends admission. - RAD Interpretation Radiology Orders: 09/25/18 13:52 CHEST PORTABLE [RAD] Stat - Medication Orders Current Medication Orders: Discontinued Medications Aspirin (Aspirin Chewable) 324 mg PO STAT STA Stop: 09/25/18 13:53 - Scribe Statement The provider has reviewed the documentation as recorded by the [employer] training with [employer]. All medical record entries made by the Scribe were at my direction and personally dictated by me. I have reviewed the chart and agree that the record accurately reflects my personal performance of the history, physical exam, medical decision making, and the department course for this patient. I have also personally directed, reviewed, and agree with the discharge instructions and disposition. Disposition/Present on Arrival - Present on Arrival Any Indicators Present on Arrival: No History of DVT/PE: No History of Uncontrolled Diabetes: No Urinary Catheter: No History of Decub. Ulcer: No History Surgical Site Infection Following: None - Disposition Have Diagnosis and Disposition been Completed?: Yes Diagnosis: Chest pain Disposition: HOSPITALIZED Disposition Time: 15:20 Patient Plan: Observation Condition: FAIR
[2018-09-25 14:51] LABS: TROPONIN I < 0.01 ng/mL
--- NOTE | 2018-09-25 15:44 | RAD ---
Date of service: 09/25/2018 HISTORY: chest pain COMPARISON: Portable chest 01/13/2018. FINDINGS: LUNGS: No active pulmonary disease. PLEURA: No significant pleural effusion identified, no pneumothorax apparent. CARDIOVASCULAR: No aortic atherosclerotic calcification present. Normal cardiac size. No pulmonary vascular congestion. OSSEOUS STRUCTURES: No significant abnormalities. VISUALIZED UPPER ABDOMEN: Normal. OTHER FINDINGS: None. IMPRESSION: No interval acute cardiopulmonary disease appreciated.
--- NOTE | 2018-09-25 16:23 | CARD ---
APPROVED REPORT Date of service: 09/25/2018 EKG Measurement Heart [id number] <Conclusion> Sinus bradycardia Otherwise normal ECG
--- NOTE | 2018-09-25 18:01 | CP.PCM.HP ---
<Denisse Carmona - Last Filed: 09/25/18 19:58> History of Present Illness - History of Present Illness History of Present Illness: Denisse Carmona, PGY-1 Medicine H&P Note for Dr. Fonseca: CC: CP x 3 days Pt is a 63 yo F with pmhx of HTN, HLD, COPD, CAD s/p stent x 5, Asthma who presents for chest discomfort that she has been experiencing for that past 3 days. She states that she has intermittent bouts of chest discomfort which self resolve within 30 seconds. She states that the pain shoots from her back to the front of her chest. She describes it not as a pain but as a discomfort and she s tates that it does not radiate to her L shoulder, down L arm, and does not radiate up the neck or the jaw. She denies the pain worsening or being brought up by exertion or diaphroesis when the episodes occur. She states that this all started when she had to put down her cat. She also states that she has been having bouts of GERD lately which is new to her. At this time she denies fevers, chills, headache, lightheadness, chest pain, palpitations, SOB, cough, n/v, c/d, abd pain but does admit to GERD. She also denies dysuria, frequency or weakness. Pmhx: HTN, HLD, COPD, CAD s/p stent x 5, Asthma Pshx: Azeb '06 Meds: Losartan, Asa, Effient, synthroid, xanax All: PCN Social: Quit smoking '16 - prior [id number] yrs, denies etoh or illicit drug use Fam: Dad: CAD PMD: [place] Pharm: [facility] in Present on Admission - Present on Admission Any Indicators Present on Admission: No Review of Systems - Review of Systems Review of Systems: 12 point ROS reviewed and negative except stated in HPI above. Past Patient History - Infectious Disease Hx of Infectious Diseases: None - Past Social History Smoking Status: Never Smoked - CARDIAC Hx Cardiac Disorders: (cp) Hx Angina: ("Nobody ever told me I had angina" pt stated) Hx Hypertension: Yes Hx Pacemaker: No Other/Comment: pt denies ever having an mi, february 2016 1st stent, jul 2016 2 stents, january 10 2 more stents total of 5 - PULMONARY Hx Respiratory Disorders: Yes Hx Chronic Obstructive Pulmonary Disease (COPD): Yes ("very" mild copd) - NEUROLOGICAL Hx Neurological Disorder: Yes Hx Dizziness: Yes (vertigo) - HEENT Hx HEENT Problems: Yes (eyeglasses) - RENAL Hx Chronic Kidney Disease: No - ENDOCRINE/METABOLIC Hx Hypothyroidism: Yes - HEMATOLOGICAL/ONCOLOGICAL Hx Blood Disorders: No - INTEGUMENTARY Hx Dermatological Problems: No - MUSCULOSKELETAL/RHEUMATOLOGICAL Hx Musculoskeletal Disorders: No Hx Falls: No - GASTROINTESTINAL Hx Gastrointestinal Disorders: Yes (diverticulosis) - GENITOURINARY/GYNECOLOGICAL Hx Genitourinary Disorders: No - PSYCHIATRIC Hx Anxiety: Yes Hx Emotional Abuse: No Hx Physical Abuse: No Hx Substance Use: No - SURGICAL HISTORY Hx Cardiac Catheterization: Yes Hx Cholecystectomy: Yes (2006) Hx Coronary Stent: Yes Other/Comment: february 2016 1st stent, jul 2016 2 stents, january 10 2 more stents for total of 5 - ANESTHESIA Hx Anesthesia Reactions: No Hx Malignant Hyperthermia: No Meds Allergies/Adverse Reactions: Allergies Allergy/AdvReac Type Severity Reaction Status Date / Time Penicillins Allergy ANGIOEDEMA Verified 08/15/16 06:04 Physical Exam - Constitutional Appears: Well, Non-toxic, No Acute Distress - Head Exam Head Exam: ATRAUMATIC, NORMAL INSPECTION, NORMOCEPHALIC - Eye Exam Eye Exam: EOMI, Normal appearance, PERRL - Respiratory Exam Respiratory Exam: Chest Wall Tenderness (present upon palpation of the xyphoid process), Clear to Auscultation Bilateral, NORMAL BREATHING PATTERN. absent: Accessory Muscle Use, Rales, Rhonchi, Wheezes, Respiratory Distress, Stridor - Cardiovascular Exam Cardiovascular Exam: RRR, +S1, +S2. absent: Gallop, Rubs - GI/Abdominal Exam GI & Abdominal Exam: Normal Bowel Sounds, Soft. absent: Distended, Firm, Guarding, Tenderness - Extremities Exam Extremities exam: Positive for: normal capillary refill, normal inspection, pedal pulses present. Negative for: calf tenderness, pedal edema - Back Exam Back exam: NORMAL INSPECTION. absent: CVA tenderness (L), CVA tenderness (R) - Neurological Exam Neurological exam: Alert, Oriented x3 - Psychiatric Exam Psychiatric exam: Normal Affect, Normal Mood - Skin Skin Exam: Dry, Normal Color, Warm Results - Vital Signs Recent Vital Signs: Last Vital Signs Temp 98.1 F 09/25/18 16:47 Pulse 55 L 09/25/18 17:46 Resp 18 09/25/18 17:46 BP 158/78 H 09/25/18 17:46 Pulse Ox 97 09/25/18 17:46 - Labs Result Diagrams: 09/25/18 14:11 09/25/18 14:11 Labs: Laboratory Results - last 24 hr 09/25/18 09/25/18 09/25/18 14:11 14:11 14:11 WBC 6.6 RBC 3.95 Hgb 12.0 Hct 35.8 L MCV 90.6 MCH 30.4 MCHC 33.5 RDW 14.4 Plt Count 343 MPV 8.6 Neut % (Auto) 48.1 L Lymph % (Auto) 40.0 H [place] % (Auto) 5.2 Eos % (Auto) 5.9 H Baso % (Auto) 0.8 Lymph # (Auto) 2.6 [place] # (Auto) 0.3 Eos # (Auto) 0.4 Baso # (Auto) 0.05 Absolute Neuts (auto) 3.18 PT 11.7 INR 1.05 APTT 31.6 Sodium 138 Potassium 4.4 Chloride 108 H Carbon Dioxide 26 Anion Gap 9 L BUN 12 Creatinine 0.6 L Est GFR ( Amer) > 60 Est GFR (Non-Af Amer) > 60 Random Glucose 94 Calcium 9.5 Phosphorus 3.8 Magnesium 2.0 Total Bilirubin 0.3 AST 38 H ALT 30 Alkaline Phosphatase 63 Total Creatine Kinase 62 Troponin I < 0.01 Total Protein 7.2 Albumin 4.2 Globulin 2.9 Albumin/Globulin Ratio 1.4 Assessment & Plan - Assessment and Plan (Free Text) Assessment: Pt is a 63 yo F with pmhx of HTN, HLD, COPD, CAD s/p stent x 5, Asthma who presents for chest discomfort that she has been experiencing for that past 3 days. EKG showed sinus aashish @ 58, CXR showed NAD. Pt is admitted for CP r/o ACS Plan: 1) CP r/o ACS: - Per pt hx she is experincing bouts of atypical chest pain and at this time is asymptomatic. - EKG: Sinus aashish @ 58 - CXR: NAD - 325 ASA given in ED - ASA 81mg qd - Initial trops (-) - f/u trop trend - f/u Lipid panel - f/u HbgA1c - NPO @ midnight - Cards consult - Dr. Cazares 2) Hx of HTN: - Cont home Cozaar 3) Hx of HLD: - Cont home lipitor 4) Hx of hypothyroidism: - Cont home synthroid 5) Hx of CAD s/p 5 stents: Last in dec, 2017 - Cont home Asa - Cont home Effient PPx: GI: Protonix DVT: Pt on Prasugrel Pt seen, examined and discussed with Dr. Marian Carmona, PGY-1 <Keli Fonseca - Last Filed: 09/26/18 07:43> Results - Vital Signs Recent Vital Signs: Last Vital Signs Temp 97.8 F 09/26/18 06:00 Pulse 75 09/26/18 06:00 Resp 21 09/26/18 06:00 BP 108/56 L 09/26/18 06:00 Pulse Ox 95 09/26/18 00:01 - Labs Result Diagrams: 09/26/18 06:00 09/26/18 06:00 Labs: Laboratory Results - last 24 hr 09/25/18 09/25/18 09/25/18 14:11 14:11 14:11 WBC 6.6 RBC 3.95 Hgb 12.0 Hct 35.8 L MCV 90.6 MCH 30.4 MCHC 33.5 RDW 14.4 Plt Count 343 MPV 8.6 Neut % (Auto) 48.1 L Lymph % (Auto) 40.0 H [place] % (Auto) 5.2 Eos % (Auto) 5.9 H Baso % (Auto) 0.8 Lymph # (Auto) 2.6 [place] # (Auto) 0.3 Eos # (Auto) 0.4 Baso # (Auto) 0.05 Absolute Neuts (auto) 3.18 PT 11.7 INR 1.05 APTT 31.6 Sodium 138 Potassium 4.4 Chloride 108 H Carbon Dioxide 26 Anion Gap 9 L BUN 12 Creatinine 0.6 L Est GFR ( Amer) > 60 Est GFR (Non-Af Amer) > 60 Random Glucose 94 Calcium 9.5 Phosphorus 3.8 Magnesium 2.0 Total Bilirubin 0.3 AST 38 H ALT 30 Alkaline Phosphatase 63 Total Creatine Kinase 62 Troponin I < 0.01 Total Protein 7.2 Albumin 4.2 Globulin 2.9 Albumin/Globulin Ratio 1.4 Triglycerides Cholesterol LDL Cholesterol Direct HDL Cholesterol 09/25/18 09/26/18 09/26/18 20:04 02:15 06:00 WBC 6.9 RBC 4.27 Hgb 12.9 Hct 39.0 MCV 91.3 MCH 30.2 MCHC 33.1 RDW 14.5 Plt Count 355 MPV 8.6 Neut % (Auto) 46.3 L Lymph % (Auto) 41.7 H [place] % (Auto) 5.4 Eos % (Auto) 6.0 H Baso % (Auto) 0.6 Lymph # (Auto) 2.9 [place] # (Auto) 0.4 Eos # (Auto) 0.4 Baso # (Auto) 0.04 Absolute Neuts (auto) 3.18 PT INR APTT Sodium Potassium Chloride Carbon Dioxide Anion Gap BUN Creatinine Est GFR ( Amer) Est GFR (Non-Af Amer) Random Glucose Calcium Phosphorus Magnesium Total Bilirubin AST ALT Alkaline Phosphatase Total Creatine Kinase Troponin I < 0.01 < 0.01 Total Protein Albumin Globulin Albumin/Globulin Ratio Triglycerides Cholesterol LDL Cholesterol Direct HDL Cholesterol 09/26/18 09/26/18 06:00 06:00 WBC RBC Hgb Hct MCV MCH MCHC RDW Plt Count MPV Neut % (Auto) Lymph % (Auto) [place] % (Auto) Eos % (Auto) Baso % (Auto) Lymph # (Auto) [place] # (Auto) Eos # (Auto) Baso # (Auto) Absolute Neuts (auto) PT INR APTT Sodium 141 Potassium 4.4 Chloride 106 Carbon Dioxide 29 Anion Gap 10 BUN 15 Creatinine 0.6 L Est GFR ( Amer) > 60 Est GFR (Non-Af Amer) > 60 Random Glucose 104 Calcium 9.6 Phosphorus Magnesium Total Bilirubin 0.3 AST 41 H ALT 25 Alkaline Phosphatase 63 Total Creatine Kinase Troponin I Total Protein 7.5 Albumin 4.4 Globulin 3.1 Albumin/Globulin Ratio 1.4 Triglycerides 118 Cholesterol 173 LDL Cholesterol Direct 94 HDL Cholesterol 53 Attending/Attestation - Attestation I have personally seen and examined this patient.: Yes I have fully participated in the care of the patient.: Yes I have reviewed all pertinent clinical information: Yes Notes (Text): 09/25/18 63 year old female with past medical history of CAD s/p stents, hypertension and COPD who presents with complaint of chest pain. Will admit to telemetry unit; obtain serial cardiac enzymes to rule out ACS. Cardiology evaluation is requested. Continue with home medications including aspirin, effient, statin, and cozaar. Keli Fonseca MD Hospitalist.
[2018-09-26] MEDS: Levothyroxine 75 MCG TAB PO SCH (05:38)
[2018-09-26] MEDS: Pantoprazole 40 mg EC Tab PO SCH (05:38)
[2018-09-26 06:39] LABS: HDL CHOLESTEROL 53 mg/dL (29-60)
[2018-09-26] MEDS ORDERED: Lidocaine 2% Inj (20ml) ONE (06:45)
[2018-09-26] MEDS ORDERED: Adenosine 90 mg/30mL IV ONE (06:45)
[2018-09-26] MEDS ORDERED: Phenylephrine 10 mg/ml Inj ONE (06:45)
[2018-09-26] MEDS ORDERED: Iodixanol 320 MG/ML 200 ML BOTTLE IV ONE (06:46)
[2018-09-26] MEDS ORDERED: Iohexol 350mgl/ml 50 ML ONE (06:46)
[2018-09-26] MEDS ORDERED: Iodixanol 320 MG/ML 100 ML BOTTLE IV ONE (06:46)
[2018-09-26] MEDS ORDERED: Heparin 2,000 ML IV ONE (06:46)
[2018-09-26] MEDS ORDERED: Nitroglycerin 50mg in D5W 0 MG/0 ML BOTTLE IV ONE (06:46)
[2018-09-26 06:48] LABS: BASO # 0.04 K/mm3 (0.0-2.0); BASO % 0.6 % (0.0-3.0); EOS # 0.4 (0.0-0.7); HEMOGLOBIN 12.9 g/dL (12.0-16.0); LYMPH # 2.9 (1.2-3.4); LYMPH % 41.7 % (22.0-35.0); MEAN CELL VOLUME 91.3 fl (80.0-105.0); MEAN CORPUSCULAR HEMOGLOBIN 30.2 pg (25.0-35.0); MEAN CORPUSCULAR HGB CONC 33.1 g/dl (31.0-37.0); MEAN PLATELET VOLUME 8.6 fl (7.0-11.0); MONO # 0.4 (0.1-0.6); MONO % 5.4 % (1.0-6.0); RBC 4.27 10^6/uL (3.5-6.1); RED CELL DISTRIBUTION WIDTH 14.5 % (11.5-14.5); WHITE BLOOD COUNT 6.9 10^3/uL (4.5-11.0)
[2018-09-26 06:49] LABS: LDL CHOLESTEROL 94 mg/dL (0-129)
[2018-09-26 06:52] LABS: ALB/GLOB RATIO 1.4 (1.1-1.8); ALBUMIN 4.4 g/dL (3.0-4.8); ALT/SGPT 25 U/L (7-56); AST/SGOT 41 U/L (14-36); BLOOD UREA NITROGEN 15 mg/dL (7-21); CALCIUM 9.6 mg/dL (8.4-10.5); GFR NON-AFRICAN AMERICAN > 60
[2018-09-26] MEDS ORDERED: Midazolam 2 MG/2 ML VIAL ONE ×2 (08:38→08:50)
[2018-09-26] MEDS ORDERED: Morphine 2 mg/ml ISec ONE ×2 (09:00→09:30)
[2018-09-26] MEDS ORDERED: DiphenhydrAMINE 50 mg/ml Inj ONE ×2 (09:15→09:22)
--- NOTE | 2018-09-26 09:36 | CON ---
DATE OF CONSULTATION: 09/25/2018 CARDIOLOGY CONSULTATION HISTORY: The patient is a 63-year-old woman, who presents with 2 days of progressive substernal chest pain. Her symptoms were better after nitroglycerin. PAST MEDICAL HISTORY: The patient's past medical history includes an inferior wall CO in the past as well as recent PTCA and stent of an LAD. Her cardiac risk factors include hypertension and hypercholesterolemia. She is currently on Effient and aspirin and has insensitivity to Plavix. SOCIAL HISTORY: She denies smoking. REVIEW OF SYSTEMS: A 14-point review of systems is reviewed in detail. No other additional symptoms are noted. PHYSICAL EXAMINATION: VITAL SIGNS: Blood pressure is 113/67, heart rate is in the 60s. NECK: Negative JVD. LUNGS: Without rales. CARDIAC: Heart rate S1, S2. EXTREMITIES: Without edema. LABORATORY DATA: Hemoglobin is 12.9. Chemistries, BUN and creatinine are unremarkable. Initial troponin was negative. IMPRESSION: 1. Recurrent angina. 2. Coronary artery disease. 3. History of percutaneous transluminal coronary angioplasty and stent. 4. Old inferior wall myocardial infarction. 5. Hypertension. 6. Hypercholesterolemia. PLAN: Given these findings, I have offered the patient diagnostic options including a stress test versus repeat catheterization. The patient refuses a stress test and understands what a catheterization is and has requested a catheterization, which we will schedule. We will continue her on her aspirin and Effient. Addi Cazares MD
[2018-09-26] MEDS ORDERED: Sodium Chloride 0.9% 1,000 ML IV SCH (10:00)
[2018-09-26] MEDS ORDERED: Levothyroxine 75 MCG TAB PO SCH (10:00)
[2018-09-26] MEDS ORDERED: A C T ELECTRONICS XX ONE (10:45)
--- NOTE | 2018-09-26 11:17 | CARD ---
APPROVED REPORT Date of service: 09/26/2018 EKG Measurement Heart [id number] <Conclusion> Sinus bradycardia Otherwise normal ECG
--- NOTE | 2018-09-26 12:41 | CARDCATH ---
PROCEDURE DATE: 09/26/2018 CARDIAC CATH AND PTCA HISTORY: The patient is a 63-year-old woman who presents with recurrence of angina. The patient has multivessel CAD in the past. The patient has been noncompliant with her cardiac risk reduction program. Because of this, the patient was brought for cardiac catheterization. PROCEDURE: Left heart catheterization with coronary artery, left ventriculogram, supra-aortic valvular injection, followed by a complicated PTCA and stent of 80% mid RCA stenoses. The right femoral artery was cannulated with 6-Slovak sheath. There were no complications. I performed moderate sedation which included the presence of an independent trained observer that assisted in monitoring the patient's level of consciousness and physiologic status. After administration of Versed and fentanyl, my intra service time was 16 minutes. The findings on catheterization revealed a left ventricle that contracted normally. Estimated ejection fraction is 60%. Supra-aortic valvular injection reveals no aortic insufficiency. The patient had a codominant circulation. The left main artery was unremarkable. The LAD revealed diffuse atherosclerosis with a patent stent in the midportion. The circumflex artery was large vessel with intimal irregularities without critical lesions. The RCA was diffusely diseased with marked tortuosity. There is a patent stent in the midportion of the RCA. Distal to the stent, there is a 80% eccentric stenosis noted. The patient was started on intravenous Angiomax on the fluoroscopic guide, the guiding catheter was placed in the ostium of the RCA. Using multiple wires as well as a guide liner as well as a [place] slam wire, the balloon was finally brought down to the critical lesion and dilated with a 2.5 balloon. This was followed by implantation of a 3.0 x 12 mm drug-eluting stent at 14 ounces of pressure. Repeat coronary arteriography revealed an excellent result with no residual stenosis and OSCAR-III flow. Angio-Seal was used to close the femoral artery site. The patient tolerated the procedure well. In summary, the procedure was successful for PTCA and stent of an 80% eccentric stenosis in the mid RCA distal to the first stent. A drug-eluting stent was utilized. Cardiac catheterization reveals patent stents in the LAD, patent stent in the mid RCA with a new 80% stenoses in the mid RCA distal to the first stent. LV function is normal. No aortic insufficiency is noted. Given these findings, the patient will need to remain on aspirin indefinitely and Effient for at least a year and undergo a strict cardiac risk reduction program. The patient needs to be compliant with her diet and exercise reduction program. Addi Cazares MD [facility] # [id number]
--- NOTE | 2018-09-26 16:28 | CP.PCM.PN ---
<Denisse Carmona - Last Filed: 09/26/18 19:56> Subjective - Date & Time of Evaluation Date of Evaluation: 09/26/18 Time of Evaluation: 11:30 - Subjective Subjective: Denisse Carmona, PGY-1 Medicine Progress Note for Dr. Fonseca: Pt was seen and examined this AM at bedside. Pt states that she is feeling better after the cath but is feeling tired and weak. Pt had 1 BREA stent placed in RCA. She states that she is not having any chest pain, palpitations, lightheadedness, dizziness, SOB, cough, n/v, c/d, dysuria or pain in the groin from cath side. Objective - Vital Signs/Intake and Output Vital Signs (last 24 hours): Temp Pulse Resp BP Pulse Ox 97.4 F L 72 18 154/68 H 95 09/26/18 12:57 09/26/18 15:05 09/26/18 15:05 09/26/18 15:05 09/26/18 10:20 Intake and Output: 09/26/18 09/26/18 06:59 18:59 Intake Total 180 Balance 180 - Medications Medications: Current Medications Alprazolam (Xanax) 0.25 mg PO TID PRN; Protocol PRN Reason: Anxiety Stop: 10/02/18 18:00 Last Admin: 09/26/18 01:10 Dose: 0.25 mg Aspirin (Ecotrin) 81 mg PO DAILY [facility] Last Admin: 09/26/18 10:40 Dose: Not Given Atorvastatin Calcium (Lipitor) 40 mg PO DIN [facility] Levothyroxine Sodium (Synthroid) 75 mcg PO 0600 [facility] Last Admin: 09/26/18 05:38 Dose: 75 mcg Losartan Potassium (Cozaar) 12.5 mg PO DAILY [facility] Last Admin: 09/26/18 10:20 Dose: Not Given Ondansetron HCl (Zofran Inj) 4 mg IV ONCE PRN PRN Reason: Nausea/Vomiting Pantoprazole Sodium (Protonix Ec Tab) 40 mg PO 0600 [facility] Last Admin: 09/26/18 05:38 Dose: 40 mg Prasugrel (Effient) 10 mg PO DAILY [facility] Last Admin: 09/26/18 10:41 Dose: Not Given - Labs Labs: 09/26/18 06:00 09/26/18 06:00 PT 11.7 SECONDS (9.4-12.5) 09/25/18 14:11 INR 1.05 09/25/18 14:11 APTT 31.6 Seconds (26.9-38.3) 09/25/18 14:11 - Constitutional Appears: Well, Non-toxic, No Acute Distress - Head Exam Head Exam: ATRAUMATIC, NORMAL INSPECTION, NORMOCEPHALIC - Eye Exam Eye Exam: EOMI, Normal appearance, PERRL - Respiratory Exam Respiratory Exam: Clear to Ausculation Bilateral, NORMAL BREATHING PATTERN. absent: Accessory Muscle Use, Chest Wall Tenderness, Rales, Rhonchi, Wheezes, Respiratory Distress, Stridor - Cardiovascular Exam Cardiovascular Exam: RRR, +S1, +S2. absent: Gallop, Rubs - GI/Abdominal Exam GI & Abdominal Exam: Soft, Normal Bowel Sounds. absent: Firm, Guarding, Rigid, Tenderness - Extremities Exam Extremities Exam: Normal Capillary Refill, Normal Inspection. absent: Calf Tenderness, Pedal Edema - Back Exam Back Exam: NORMAL INSPECTION. absent: CVA tenderness (L), CVA tenderness (R) - Neurological Exam Neurological Exam: Alert, Awake, Oriented x3 - Psychiatric Exam Psychiatric exam: Normal Affect, Normal Mood - Skin Skin Exam: Dry, Normal Color, Warm Assessment and Plan - Assessment and Plan (Free Text) Assessment: Pt is a 63 yo F with pmhx of HTN, HLD, COPD, CAD s/p stent x 5, Asthma who presents for chest discomfort that she has been experiencing for that past 3 days. EKG showed sinus aashish @ 58, CXR showed NAD. Pt is admitted for CP r/o ACS. Pt went for cath today (09/26/18) and had 1 BREA stent placed in RCA. Plan: 1) CAD s/p 1 BREA in the RCA: - Per pt hx she is experincing bouts of atypical chest pain and at this time is asymptomatic. - EKG: Sinus aashish @ 58 - CXR: NAD - 325 ASA given in ED - ASA 81mg qd - Trops (-) x3. - 1 BREA placed in RCA. - Lipid panel - T, Chil: 173, LDL:94, HDL: 53 - HbgA1c - 6.0 - Cards consult - Dr. Cazares - Cont ASA and effient for at least 1 year. 2) Hx of HTN: - Cont home Cozaar 3) Hx of HLD: - Cont home lipitor 4) Hx of hypothyroidism: - Cont home synthroid 5) Hx of CAD s/p 6 stents: Last 09/26/18 - Cont home Asa - Cont home Effient PPx: GI: Protonix DVT:SCDs, Prasugrel Pt seen, examined and discussed with Dr. Marian Carmona, PGY-1 <Keli Fonseca - Last Filed: 09/27/18 07:17> Objective - Vital Signs/Intake and Output Vital Signs (last 24 hours): Temp Pulse Resp BP Pulse Ox 98.1 F 67 18 112/55 L 95 09/26/18 19:41 09/27/18 06:00 09/26/18 19:41 09/26/18 19:41 09/26/18 10:20 Intake and Output: 09/27/18 09/27/18 06:59 18:59 Intake Total 480 Output Total 1000 Balance -520 - Medications Medications: Current Medications Alprazolam (Xanax) 0.25 mg PO TID PRN; Protocol PRN Reason: Anxiety Stop: 10/02/18 18:00 Last Admin: 09/26/18 01:10 Dose: 0.25 mg Aspirin (Ecotrin) 81 mg PO DAILY [facility] Last Admin: 09/26/18 10:40 Dose: Not Given Atorvastatin Calcium (Lipitor) 40 mg PO DIN [facility] Last Admin: 09/26/18 21:03 Dose: 40 mg Levothyroxine Sodium (Synthroid) 75 mcg PO 0600 [facility] Last Admin: 09/27/18 06:07 Dose: 75 mcg Losartan Potassium (Cozaar) 12.5 mg PO DAILY [facility] Last Admin: 09/26/18 10:20 Dose: Not Given Ondansetron HCl (Zofran Inj) 4 mg IV ONCE PRN PRN Reason: Nausea/Vomiting Pantoprazole Sodium (Protonix Ec Tab) 40 mg PO 0600 [facility] Last Admin: 09/27/18 06:07 Dose: 40 mg Prasugrel (Effient) 10 mg PO DAILY [facility] Last Admin: 09/26/18 10:41 Dose: Not Given Simethicone (Mylicon Chew Tab) 80 mg PO [facility] PRN PRN Reason: GI distress Last Admin: 09/26/18 21:33 Dose: 80 mg - Labs Labs: 09/26/18 06:00 09/26/18 06:00 PT 11.7 SECONDS (9.4-12.5) 09/25/18 14:11 INR 1.05 09/25/18 14:11 APTT 31.6 Seconds (26.9-38.3) 09/25/18 14:11 Attending/Attestation - Attestation I have personally seen and examined this patient.: Yes I have fully participated in the care of the patient.: Yes I have reviewed all pertinent clinical information, including history, physical exam and plan: Yes Notes (Text): 09/26/18 63 year old female with past medical history of CAD s/p stents, hypertension and COPD who presented with complaint of chest pain. Serial cardiac enzymes have been negative. Cardiology evaluation was appreciated and patient is s/p cath with BREA of RCA. Continue with home medications including aspirin, effient, statin, and cozaar. Overnight overnight with plan to discharge tomorrow as per cardiology. Keli Fonseca MD Hospitalist.
[2018-09-26] MEDS ORDERED: Simethicone 80 mg Chewtab PO PRN (19:48)
[2018-09-27] MEDS: Pantoprazole 40 mg EC Tab PO SCH (06:07)
[2018-09-27] MEDS: Levothyroxine 75 MCG TAB PO SCH (06:07)
[2018-09-27 07:26] LABS: BASO # 0.03 K/mm3 (0.0-2.0); BASO % 0.4 % (0.0-3.0); EOS # 0.3 (0.0-0.7); EOS % 3.9 % (1.5-5.0); HEMOGLOBIN 10.9 g/dL (12.0-16.0); LYMPH # 1.9 (1.2-3.4); LYMPH % 27.8 % (22.0-35.0); MEAN CORPUSCULAR HEMOGLOBIN 30.1 pg (25.0-35.0); MEAN CORPUSCULAR HGB CONC 32.7 g/dl (31.0-37.0); MEAN PLATELET VOLUME 8.5 fl (7.0-11.0); MONO # 0.4 (0.1-0.6); MONO % 5.8 % (1.0-6.0); RBC 3.62 10^6/uL (3.5-6.1); RED CELL DISTRIBUTION WIDTH 14.4 % (11.5-14.5); WHITE BLOOD COUNT 6.8 10^3/uL (4.5-11.0)
[2018-09-27 07:47] LABS: ALB/GLOB RATIO 1.4 (1.1-1.8); ALBUMIN 3.7 g/dL (3.0-4.8); ALT/SGPT 41 U/L (7-56); AST/SGOT 43 U/L (14-36); BLOOD UREA NITROGEN 11 mg/dL (7-21); CALCIUM 9.2 mg/dL (8.4-10.5); GFR NON-AFRICAN AMERICAN > 60
[2018-09-27 11:57] VITALS: O2SAT 97
[2018-09-27] MEDS ORDERED: Alum-Mag Hydrox-Simethicone Susp (30 mL) PO ONE (11:59)
--- NOTE | 2018-09-27 13:39 | PN ---
DATE: 09/27/2018 CARDIOLOGY FOLLOWUP HISTORY: The patient is ambulating without symptoms. PHYSICAL EXAMINATION VITAL SIGNS: Blood pressure 111/61, heart rates in the 60s. NECK: Negative JVD. LUNGS: Without rales. HEART: S1, S2. EXTREMITIES: Without edema. The right groin site is stable. LABORATORY DATA: BUN and creatinine is unremarkable. The hemoglobin is 10.9. IMPRESSION 1. Stable post percutaneous transluminal coronary angioplasty and stent of the right coronary artery. 2. History of inferior wall myocardial infarction in the past. 3. Multivessel coronary artery disease. 4. Hypercholesterolemia. 5. Noncompliance with cardiac modification program. Given these findings, I have discussed with the patient that he needed to begin a cardiac risk reduction program. She seems to understand. She is agreeable to cardiac rehab. We will begin to arrange for it. Addi Cazares MD
[2018-09-27 14:34] VITALS: BP 104/70; PULSE 74; RESP 20; TEMP 98.2
--- NOTE | 2018-09-27 15:35 | CP.PCM.DIS ---
<Keegan Navarrete - Last Filed: 09/27/18 16:59> Provider - Provider Date of Admission: 09/26/18 15:07 Attending physician: Keli Fonseca MD Primary care physician: Jeancarlos Tubbs MD Consults: 09/25/18 16:55 Consult [Physician Consult] Stat Comment: Consulting Provider: Addi Cazares Consulting Physician: Addi Cazares Reason for Consult: chest pain 09/25/18 17:58 Cardiology Consult Routine Comment: Consulting Provider: Addi Cazares Consulting Physician: Addi Cazares Reason for Consult: CP r/o ACS 09/26/18 00:43 Transition In Care/Readmission Reduction Routine Comment: Physician Instructions: Reason For Exam: Protocol Time Spent in preparation of Discharge (in minutes): 40 Diagnosis - Discharge Diagnosis (1) Chest pain with moderate risk for cardiac etiology Status: Acute (2) CAD (coronary artery disease) Status: Chronic Priority: Medium (3) HLD (hyperlipidemia) Status: Chronic Priority: Medium (4) HTN (hypertension) Status: Chronic Priority: Medium Hospital Course - Lab Results Lab Results: Most Recent Lab Values WBC 6.8 10^3/uL (4.5-11.0) 09/27/18 06:00 RBC 3.62 10^6/uL (3.5-6.1) 09/27/18 06:00 Hgb 10.9 g/dL (12.0-16.0) L D 09/27/18 06:00 Hct 33.3 % (36.0-48.0) L 09/27/18 06:00 MCV 92.0 fl (80.0-105.0) 09/27/18 06:00 MCH 30.1 pg (25.0-35.0) 09/27/18 06:00 MCHC 32.7 g/dl (31.0-37.0) 09/27/18 06:00 RDW 14.4 % (11.5-14.5) 09/27/18 06:00 Plt Count 295 10^3/uL (120.0-450.0) 09/27/18 06:00 MPV 8.5 fl (7.0-11.0) 09/27/18 06:00 Neut % (Auto) 62.1 % (50.0-68.0) 09/27/18 06:00 Lymph % (Auto) 27.8 % (22.0-35.0) 09/27/18 06:00 [place] % (Auto) 5.8 % (1.0-6.0) 09/27/18 06:00 Eos % (Auto) 3.9 % (1.5-5.0) 09/27/18 06:00 Baso % (Auto) 0.4 % (0.0-3.0) 09/27/18 06:00 Lymph # (Auto) 1.9 (1.2-3.4) 09/27/18 06:00 [place] # (Auto) 0.4 (0.1-0.6) 09/27/18 06:00 Eos # (Auto) 0.3 (0.0-0.7) 09/27/18 06:00 Baso # (Auto) 0.03 K/mm3 (0.0-2.0) 09/27/18 06:00 Absolute Neuts (auto) 4.24 (1.4-6.5) 09/27/18 06:00 PT 11.7 SECONDS (9.4-12.5) 09/25/18 14:11 INR 1.05 09/25/18 14:11 APTT 31.6 Seconds (26.9-38.3) 09/25/18 14:11 Sodium 139 mmol/L (132-148) 09/27/18 06:00 Potassium 4.4 mmol/L (3.6-5.0) 09/27/18 06:00 Chloride 106 mmol/L (98-107) 09/27/18 06:00 Carbon Dioxide 30 mmol/L (21-33) 09/27/18 06:00 Anion Gap 7 (10-20) L 09/27/18 06:00 BUN 11 mg/dL (7-21) 09/27/18 06:00 Creatinine 0.6 mg/dl (0.7-1.2) L 09/27/18 06:00 Est GFR ( Amer) > 60 09/27/18 06:00 Est GFR (Non-Af Amer) > 60 09/27/18 06:00 Random Glucose 107 mg/dL (70-110) 09/27/18 06:00 Hemoglobin A1c 6.0 % (4.2-6.5) 09/26/18 06:00 Calcium 9.2 mg/dL (8.4-10.5) 09/27/18 06:00 Phosphorus 3.8 mg/dL (2.5-4.5) 09/25/18 14:11 Magnesium 2.0 mg/dL (1.7-2.2) 09/25/18 14:11 Total Bilirubin 0.4 mg/dL (0.2-1.3) 09/27/18 06:00 AST 43 U/L (14-36) H 09/27/18 06:00 ALT 41 U/L (7-56) 09/27/18 06:00 Alkaline Phosphatase 64 U/L (38-126) 09/27/18 06:00 Total Creatine Kinase 62 U/L (35-230) 09/25/18 14:11 Troponin I < 0.01 ng/mL 09/26/18 02:15 Total Protein 6.4 g/dL (5.8-8.3) 09/27/18 06:00 Albumin 3.7 g/dL (3.0-4.8) 09/27/18 06:00 Globulin 2.7 gm/dL 09/27/18 06:00 Albumin/Globulin Ratio 1.4 (1.1-1.8) 09/27/18 06:00 Triglycerides 118 mg/dL (35-160) 09/26/18 06:00 Cholesterol 173 mg/dL (130-200) 09/26/18 06:00 LDL Cholesterol Direct 94 mg/dL (0-129) 09/26/18 06:00 HDL Cholesterol 53 mg/dL (29-60) 09/26/18 06:00 - Hospital Course Hospital Course: Keegan Navarrete DO, PGY-1 Hospitalist Discharge Summary for Dr. Marian Balderas is a pleasant 63 year old female with PMH of HTN, HLD, COPD, CAD s/p stent x 5, and asthma who presented to ED for concerns of worsening chest pain for 3 days duration. She was subsequently admitted for ACS r/o. Troponins were negative x 3. Given her cardiac history, she underwent PCI with placement of BREA to RCA. Cardiology recommended continuing effient, ASA, and lipitor. Prior to discharge this AM, patient stated that her CP returned this AM fo llowing breakfast. She stated that the pain was still sharp and radiating to her back. However, she admitted that the pain is always worst after meals. She stated that the protonix she was given in the morning did not help with the pain. She was subsequently given maalox and pepcid which helped. She was given prescriptions for these medications and instructed to follow up with her primary medical doctor, Dr. Tubbs, within 1 week of discharge. Discharge plan was discussed with patient and her . All questions were answered. Patient seen, examined, and discharge plan discussed with my attending Dr. Marian Navarrete D.O. IM Resident PGY-1 Discharge Exam - Head Exam Head Exam: ATRAUMATIC, NORMAL INSPECTION, NORMOCEPHALIC - Eye Exam Eye Exam: EOMI, Normal appearance, PERRL - ENT Exam ENT Exam: Mucous Membranes Moist - Neck Exam Neck exam: Full Rom, Normal Inspection - Respiratory Exam Respiratory Exam: Clear to PA & Lateral, NORMAL BREATHING PATTERN, UNREMARKABLE. absent: Rales, Rhonchi, Wheezes - Cardiovascular Exam Cardiovascular Exam: REGULAR RHYTHM, RRR, +S1, +S2. absent: Diastolic murmur, Gallop, Rubs, Systolic Murmur - GI/Abdominal Exam GI & Abdominal Exam: Normal Bowel Sounds, Unremarkable. absent: Soft - Extremities Exam Extremities exam: full ROM, normal inspection - Back Exam Back exam: NORMAL INSPECTION - Neurological Exam Neurological exam: Alert, Oriented x3 - Psychiatric Exam Psychiatric exam: Normal Affect, Normal Mood - Skin Skin Exam: Dry, Intact, Warm Discharge Plan - Discharge Medications Prescriptions: Aluminum Hydroxide/Magnesium H [Maalox 30 ml] 30 ml PO DAILY #1 udc Aspirin [Ecotrin] 81 mg PO DAILY #14 tabec Atorvastatin [Lipitor] 40 mg PO DIN #14 tab Famotidine [Pepcid] 40 mg PO DAILY #14 tab Levothyroxine [Synthroid] 75 mcg PO DAILY #14 tab Losartan [Cozaar] 12.5 mg PO DAILY #14 tab Prasugrel [Effient] 10 mg PO DAILY #14 tab - Follow Up Plan Condition: FAIR Disposition: HOME/ ROUTINE Instructions: Coronary Angioplasty, Heart Healthy Diet, Chest Pain That Is Not Caused by the Heart (DC), Heart Disease in Women (DC), Lowering Your Risk of Heart Disease, Going Home on Blood Thinners , Chest Pain (DC), Chest Pain (GEN) Additional Instructions: Please follow up with your primary care doctor, Dr. Tubbs within 1 week of discharge. Please follow up with Dr. Cazares, your mortgage protection sales, within 2 weeks of discharge. Please continue to take your medications as prescribed. We have given you a new medicine, protonix, which may help with the persistent chest discomfort you described to us. Follow up with your primary care doctor regarding further need for evaluation of epigastric pain. Please follow up with your primary care doctor whether to continue to take this medicine. If your chest pain worsens, please return to the nearest ED. Please follow the attached "post cardiac catherization/angioplasty discharge instructions". diet: Heart Healthy Diet Patient refusing the flu vaccine and states she is up to date with regards to the pneumococcal vaccine. Referrals: Jeancarlos Tubbs MD [Primary Care Provider] - Addi Cazares MD [Staff Provider] - <Keli Fonseca - Last Filed: 09/27/18 17:09> Provider - Provider Date of Admission: 09/26/18 15:07 Attending physician: Keli Fonseca MD Primary care physician: Jeancarlos Tubbs MD Consults: 09/25/18 16:55 Consult [Physician Consult] Stat Comment: Consulting Provider: Addi Cazares Consulting Physician: Addi Cazares Reason for Consult: chest pain 09/25/18 17:58 Cardiology Consult Routine Comment: Consulting Provider: Addi Cazares Consulting Physician: Addi Cazares Reason for Consult: CP r/o ACS 09/26/18 00:43 Transition In Care/Readmission Reduction Routine Comment: Physician Instructions: Reason For Exam: Protocol Hospital Course - Lab Results Lab Results: Most Recent Lab Values WBC 6.8 10^3/uL (4.5-11.0) 09/27/18 06:00 RBC 3.62 10^6/uL (3.5-6.1) 09/27/18 06:00 Hgb 10.9 g/dL (12.0-16.0) L D 09/27/18 06:00 Hct 33.3 % (36.0-48.0) L 09/27/18 06:00 MCV 92.0 fl (80.0-105.0) 09/27/18 06:00 MCH 30.1 pg (25.0-35.0) 09/27/18 06:00 MCHC 32.7 g/dl (31.0-37.0) 09/27/18 06:00 RDW 14.4 % (11.5-14.5) 09/27/18 06:00 Plt Count 295 10^3/uL (120.0-450.0) 09/27/18 06:00 MPV 8.5 fl (7.0-11.0) 09/27/18 06:00 Neut % (Auto) 62.1 % (50.0-68.0) 09/27/18 06:00 Lymph % (Auto) 27.8 % (22.0-35.0) 09/27/18 06:00 [place] % (Auto) 5.8 % (1.0-6.0) 09/27/18 06:00 Eos % (Auto) 3.9 % (1.5-5.0) 09/27/18 06:00 Baso % (Auto) 0.4 % (0.0-3.0) 09/27/18 06:00 Lymph # (Auto) 1.9 (1.2-3.4) 09/27/18 06:00 [place] # (Auto) 0.4 (0.1-0.6) 09/27/18 06:00 Eos # (Auto) 0.3 (0.0-0.7) 09/27/18 06:00 Baso # (Auto) 0.03 K/mm3 (0.0-2.0) 09/27/18 06:00 Absolute Neuts (auto) 4.24 (1.4-6.5) 09/27/18 06:00 PT 11.7 SECONDS (9.4-12.5) 09/25/18 14:11 INR 1.05 09/25/18 14:11 APTT 31.6 Seconds (26.9-38.3) 09/25/18 14:11 Sodium 139 mmol/L (132-148) 09/27/18 06:00 Potassium 4.4 mmol/L (3.6-5.0) 09/27/18 06:00 Chloride 106 mmol/L (98-107) 09/27/18 06:00 Carbon Dioxide 30 mmol/L (21-33) 09/27/18 06:00 Anion Gap 7 (10-20) L 09/27/18 06:00 BUN 11 mg/dL (7-21) 09/27/18 06:00 Creatinine 0.6 mg/dl (0.7-1.2) L 09/27/18 06:00 Est GFR ( Amer) > 60 09/27/18 06:00 Est GFR (Non-Af Amer) > 60 09/27/18 06:00 Random Glucose 107 mg/dL (70-110) 09/27/18 06:00 Hemoglobin A1c 6.0 % (4.2-6.5) 09/26/18 06:00 Calcium 9.2 mg/dL (8.4-10.5) 09/27/18 06:00 Phosphorus 3.8 mg/dL (2.5-4.5) 09/25/18 14:11 Magnesium 2.0 mg/dL (1.7-2.2) 09/25/18 14:11 Total Bilirubin 0.4 mg/dL (0.2-1.3) 09/27/18 06:00 AST 43 U/L (14-36) H 09/27/18 06:00 ALT 41 U/L (7-56) 09/27/18 06:00 Alkaline Phosphatase 64 U/L (38-126) 09/27/18 06:00 Total Creatine Kinase 62 U/L (35-230) 09/25/18 14:11 Troponin I < 0.01 ng/mL 09/26/18 02:15 Total Protein 6.4 g/dL (5.8-8.3) 09/27/18 06:00 Albumin 3.7 g/dL (3.0-4.8) 09/27/18 06:00 Globulin 2.7 gm/dL 09/27/18 06:00 Albumin/Globulin Ratio 1.4 (1.1-1.8) 09/27/18 06:00 Triglycerides 118 mg/dL (35-160) 09/26/18 06:00 Cholesterol 173 mg/dL (130-200) 09/26/18 06:00 LDL Cholesterol Direct 94 mg/dL (0-129) 09/26/18 06:00 HDL Cholesterol 53 mg/dL (29-60) 09/26/18 06:00 Attending/Attestation - Attestation I have personally seen and examined this patient.: Yes I have fully participated in the care of the patient.: Yes I have reviewed all pertinent clinical information, including history, physical exam and plan: Yes Notes (Text): 09/27/18 17:08 63 year old female with past medical history of CAD s/p stents, hypertension and COPD who presented with complaint of chest pain. She was seen by cardiology and underwent cardiac cath yesterday with BREA of RCA. She is on aspirin, effient, statin, and cozaar, not on BB secondary to bradycardia. Patient is discharged home to follow up with pmd and cardiology. Keli Fonseca MD Hospitalist.
--- NOTE | 2018-09-27 21:25 | CARD ---
APPROVED REPORT Date of service: 09/27/2018 EKG Measurement Heart [id number] <Conclusion> Normal sinus rhythm Nonspecific T wave abnormality Abnormal ECG
== END 2018-09-27 14:40 | disposition home or self-care (01) | DRG 247 ==
LOC: ED 13:38 → ERH 16:54 → 2RNO 19:16 → 2RSO 09-26 10:20 → OBSVTOIN 09-26 15:07
PROVIDERS: ADMIT Internal Medicine; ATTEND Internal Medicine
PROC: 027034Z Dilation of Coronary Artery, One Artery with Drug-eluting Intraluminal Device, Percutaneous Approach (ICD-10-PCS; principal; 2018-09-26)
PROC: 4A023N7 Measurement of Cardiac Sampling and Pressure, Left Heart, Percutaneous Approach (ICD-10-PCS; 2018-09-26)
PROC: B211YZZ Fluoroscopy of Multiple Coronary Arteries using Other Contrast (ICD-10-PCS; 2018-09-26)
PROC: B215YZZ Fluoroscopy of Left Heart using Other Contrast (ICD-10-PCS; 2018-09-26)
DX: I25.119 Atherosclerotic heart disease of native coronary artery with unspecified angina pectoris (principal); I25.2 Old myocardial infarction; E78.00 Pure hypercholesterolemia, unspecified; I10 Essential (primary) hypertension; J44.9 Chronic obstructive pulmonary disease, unspecified; K21.9 Gastro-esophageal reflux disease without esophagitis; E03.9 Hypothyroidism, unspecified; Z79.02 Long term (current) use of antithrombotics/antiplatelets; Z79.82 Long term (current) use of aspirin; Z79.890 Hormone replacement therapy; Z91.19 Patient's noncompliance with other medical treatment and regimen; Z82.49 Family history of ischemic heart disease and other diseases of the circulatory system